=== PATIENT | female | born 1950 | race Caucasian/White ===

== ENCOUNTER 2018-02-24 22:44 | Emergency (ER) | payer MEDICARE, OTHER ==
[2018-02-24 23:26] LABS: BILIRUBIN,URINE NEGATIVE (NEGATIVE); GLUCOSE, URINE (UA) NEGATIVE (NEGATIVE); KETONES,URINE (UA) NEGATIVE (NEGATIVE); LEUKOCYTE ESTERASE, URINE MODERATE (NEGATIVE); NITRITE,URINE NEGATIVE (NEGATIVE); OCCULT BLOOD,URINE NEGATIVE (NEGATIVE); PH,URINE 5.5 PH (5.0-7.5); PROTEIN,URINE NEGATIVE (NEGATIVE); UROBILINOGEN,URINE 0.2 (NORMAL) E.U./dL (NORMAL)
[2018-02-24 23:39] LABS: CLARITY,URINE CLEAR (CLEAR)
[2018-02-24 23:40] LABS: BACTERIA,URINE Few /HPF (None Seen); RBC,URINE 0-5 /HPF (0-5); SQUAMOUS EPITHELIAL CELL,UR MOD Squamous (<= Few)
--- NOTE | 2018-02-25 01:17 | ED Physician Documentation ---
PD HPI FEMALE - Stated complaint Stated Complaint: FEMALE , BACK ACHE,STOMCH ACHE - Chief complaint Chief Complaint: Abd Pain - History obtained from History obtained from: Patient - History of Present Illness Timing - onset: How many days ago (1-2) Timing - duration: Days Timing - details: Gradual onset Associated symptoms: Pelvic pain, Dysuria, Urinary frequency. No: Fever Similar symptoms before: Diagnosis (UTI) Recently seen: Not recently seen Review of Systems Constitutional: reports: Reviewed and negative GI: reports: Abdominal Pain (suprapubic) : reports: Dysuria, Frequency PD PAST MEDICAL HISTORY - Past Medical History Past Medical History: Yes Endocrine/Autoimmune: HyPOthyroidism GI: GERD - Past Surgical History Past Surgical History: Yes Ortho: Carpal Tunnel surgery /[employer]: section HEENT: Tonsil/Adenoidectomy - Present Medications Home Medications: Ambulatory Orders Medication Instructions Recorded Confirmed Levothyroxine [Synthroid] 50 mcg PO DAILY 02/24/18 Loratadine [Claritin] 10 mg PO DAILY 02/24/18 Magnesium 1 cap PO DAILY PRN 02/24/18 02/24/18 Pantoprazole [Protonix] 40 mg PO DAILY 02/24/18 Propranolol [Inderal] 02/24/18 Ciprofloxacin HCl [Cipro] 500 mg PO BID #9 tablet 02/25/18 Phenazopyridine [Pyridium] 200 mg PO TID 3 Days tablet 02/25/18 - Allergies Allergies/Adverse Reactions: Allergies Allergy/AdvReac Type Severity Reaction Status Date / Time acetaminophen Allergy Unknown Verified 02/24/18 23:06 [From Comtrex Cold-Cough] dextromethorphan Allergy Unknown Verified 02/24/18 23:06 [From Comtrex Cold-Cough] formaldehyde Allergy Unknown Verified 02/24/18 23:06 latex Allergy Rash Verified 02/24/18 23:05 phenylephrine Allergy Unknown Verified 02/24/18 23:06 [From Comtrex Cold-Cough] sulfamethazine Allergy Anxiety Verified 02/24/18 23:05 - Social History Does the pt smoke?: No Smoking Status: Never smoker Does the pt drink ETOH?: Yes Does the pt have substance abuse?: No - Immunizations Immunizations are current?: Yes - POLST Patient has POLST: No PD ED PE NORMAL - Vitals Vital signs reviewed: Yes - General General: Alert and oriented X 3, No acute distress, Well developed/nourished - Abdomen Abdomen: Soft, Non tender - Back Back: No CVA TTP Results - Vitals Vitals: Oxygen O2 Source Room air - Labs Labs: Laboratory Tests 02/24/18 23:19 Urine Color YELLOW Urine Clarity CLEAR Urine pH 5.5 Ur Specific [place] 1.020 Urine Protein NEGATIVE Urine Glucose (UA) NEGATIVE Urine Ketones NEGATIVE Urine Occult Blood NEGATIVE Urine Nitrite NEGATIVE Urine Bilirubin NEGATIVE Urine Urobilinogen 0.2 (NORMAL) Ur Leukocyte Esterase MODERATE H Urine RBC 0-5 Urine WBC 11-25 H Ur Squamous Epith Cells MOD Squamous H Urine Bacteria Few Ur Microscopic Review INDICATED Urine Culture Comments NOT INDICATED PD MEDICAL DECISION MAKING - ED course Complexity details: reviewed results, re-evaluated patient, considered differential, d/w patient Departure - Departure Disposition: 01 Home, Self Care Clinical Impression: Urinary tract infection Condition: Good Instructions: ED UTI Cystitis Female Prescriptions: Ciprofloxacin HCl [Cipro] 500 mg PO BID #9 tablet Phenazopyridine [Pyridium] 200 mg PO TID 3 Days tablet Discharge Date/Time: 02/25/18 01:51
[2018-02-25] MEDS ORDERED: CIPROFLOXACIN 250 MG TABLET PO STA (01:32)
[2018-02-25] MEDS ORDERED: PHENAZOPYRIDINE 100 MG TABLET PO STA (01:32)
[2018-02-25 01:51] VITALS: BP 119/63
== END 2018-02-25 01:51 | disposition home or self-care (01) ==
LOC: ED 22:44
DX: N39.0 Urinary tract infection, site not specified (principal); E03.9 Hypothyroidism, unspecified
CPT/HCPCS: 81001; 99283; A9270; 81003; 87086